=== PATIENT | female | born 1970 | race Caucasian/White ===

== ENCOUNTER 2021-10-20 16:32 | Inpatient (IN) | payer OTHER ==
[~2021-10-20] VITALS: Ht 165.1 cm; Wt 54.1 kg
[2021-10-20] MEDS ORDERED: IV NORMAL SALINE 1000ML BAG 1,000 ML IV ONE (17:30)
[2021-10-20] MEDS ORDERED: ONDANSETRON PF 4 MG/2 ML VIAL. IVP ONE (17:30)
[2021-10-20 17:44] LABS: BARBITURATES NEG (NEG); BENZODIAZEPINES POS (NEG); CANNABINOIDS NEG (NEG); COCAINE NEG (NEG); METHADONE NEG (NEG); OPIATES POS (NEG); PHENCYCLIDINE NEG (NEG)
[2021-10-20] MEDS ORDERED: HYDROmorphone 2 MG/ML INJ. IVP ONE (17:45)
[2021-10-20 17:50] LABS: AMPHETAMINE/METHAMPHETAMINE NEG (NEG)
[2021-10-20 17:53] LABS: BACTERIA,URINE 0 /HPF (0-FEW); RBC,URINE 0 /HPF (0-2); WBC,URINE 0 /HPF (0-4)
[2021-10-20 20:04] LABS: ALBUMIN 3.8 g/dL (3.4-5.0); ALBUMIN/GLOBULIN RATIO 1.6 (1.0-1.7); CALCIUM 8.9 mg/dL (8.5-10.1); CREATININE 0.6 mg/dL (0.6-1.0); GFR 106.3; TOTAL BILIRUBIN 0.2 mg/dL (0.2-1.0); TOTAL PROTEIN 6.2 g/dL (6.4-8.2)
[2021-10-20 20:11] LABS: POTASSIUM 2.4 mmol/L (3.5-5.1)
[2021-10-20] MEDS ORDERED: POTASSIUM BICARB 20 MEQ EFFERVESCENT TABLET. PO ONE (20:30)
--- NOTE | 2021-10-20 20:34 | PHYS DOC ---
Past Medical History Additional Past Medical Histor: EPI, pancreatitis, hernia Past Surgical History: Cholecystectomy, Hysterectomy Smoking Status: Former Smoker Alcohol Use: None General Adult EDM: Chief Complaint: FATIGUE HPI: HPI: Patient is a 50 year old female with a history of gastroparesis, pancreatitis, abdominal surgeries, malnutrition, presenting to the ED today with multiple complaints. Patient states she has had chronic nausea, vomiting and abdominal pain for years. She states she is supposed to have PICC line placed tomorrow by Dr. Gar to start TPN to help improve her nutrition so she can get surgery to fix her colon. She states her colon is "does not work". She states she has continued to have abdominal pain, she states the general surgeon requested her to come to the ED to be evaluated if her pain is not controlled at home. Patient is also complaining of nausea and vomiting. Denies any fever. Denies any hematemesis, denies any diarrhea. Review of Systems: Review of Systems: Constitutional: Denies fever or chills. [] Eyes: Denies change in visual acuity. [] HENT: Denies nasal congestion or sore throat. [] Respiratory: Denies cough or shortness of breath. [] Cardiovascular: Denies chest pain or edema. [] GI: Reports abdominal pain with nausea and vomiting, denies bloody stools or diarrhea. [] : Denies dysuria. [] Musculoskeletal: Denies back pain or joint pain. [] Integument: Denies rash. [] Neurologic: Denies headache, focal weakness or sensory changes. [] Psychiatric: Denies depression or anxiety. [] Heart Score: C/O Chest Pain: N/A Risk Factors: Risk Factors: DM, Current or recent (<one month) smoker, HTN, HLP, family history of CAD, obesity. Risk Scores: Score 0 - 3: 2.5% MACE over next 6 weeks - Discharge Home Score 4 - 6: 20.3% MACE over next 6 weeks - Admit for Clinical Observation Score 7 - 10: 72.7% MACE over next 6 weeks - Early Invasive Strategies Current Medications: Current Medications Medications (Trade) Dose Ordered Sig/Rogerio Start Time Stop Time Status Last Admin Dose Admin Hydromorphone HCl (Dilaudid) 1 mg 1X ONCE 10/20/21 17:45 10/20/21 17:46 DC 10/20/21 19:16 1 MG Ondansetron HCl (Zofran) 4 mg 1X ONCE 10/20/21 17:30 10/20/21 17:40 DC 10/20/21 19:16 4 MG Potassium Bicarbonate (Potassium Effervescent Tablet) 40 meq 1X ONCE 10/20/21 20:30 10/20/21 20:31 Sodium Chloride 1,000 ml @ 1,000 mls/hr 1X ONCE 10/20/21 17:30 10/20/21 18:29 DC 10/20/21 19:27 1,000 MLS/HR Allergies: Allergies: Allergies Coded Allergies Type Severity Reaction Last Updated Verified NSAIDS (Non-Steroidal Anti-Inflamma Allergy Intermediate 10/20/21 Yes lorazepam Allergy Intermediate 10/20/21 Yes metoclopramide Allergy Intermediate 10/20/21 Yes vancomycin Allergy Intermediate 10/20/21 Yes Physical Exam: PE: Constitutional: Emaciated thin appearing patient, no acute distress, non-toxic appearance. [] HENT: Normocephalic, atraumatic, bilateral external ears normal, oropharynx moist, no oral exudates, nose normal. [] Eyes: PERRLA, EOMI, conjunctiva normal, no discharge. [] Neck: Normal range of motion, no tenderness, supple, no stridor. [] Cardiovascular:Heart rate regular rhythm, no murmur [] Lungs & Thorax: Bilateral breath sounds clear to auscultation [] Abdomen: Bowel sounds normal, soft, diffuse tenderness throughout the abdomen, no masses, no pulsatile masses. [] Skin: Warm, dry, no erythema, no rash. [] Back: No tenderness, no CVA tenderness. [] Extremities: No tenderness, no cyanosis, no clubbing, ROM intact, no edema. [] Neurologic: Alert and oriented X 3, normal motor function, normal sensory function, no focal deficits noted. [] Psychologic: Affect normal, judgement normal, mood normal. [] Current Patient Data: Labs: Laboratory Tests Test 10/20/21 17:10 10/20/21 19:35 Urine Color (Auto) Colorless Urine Turbidity Clear Urine pH (Auto) 5.0 (<5.0-8.0) Urine Specific [place] 1.005 (1.000-1.030) Urine Protein (Auto) Negative mg/dL (Negative) Urine Glucose (Auto)(UA) Negative mg/dL (Negative) Urine Ketones (Auto) Negative mg/dL (Negative) Urine Blood (Auto) Negative (Negative) Urine Nitrite Negative (Negative) Urine Bilirubin (Auto) Negative (Negative) Urine Urobilinogen (Auto) Normal mg/dL (Normal) Urine Leukocyte Esterase (Auto) Negative (Negative) Urine RBC 0 /HPF (0-2) Urine WBC 0 /HPF (0-4) Urine Squamous Epithelial Cells Few /LPF Urine Bacteria 0 /HPF (0-FEW) Urine Opiates Screen Pos (NEG) Urine Methadone Screen Neg (NEG) Urine Barbiturates Neg (NEG) Urine Phencyclidine Screen Neg (NEG) Urine Amphetamine/Methamphetamine Neg (NEG) Urine Benzodiazepines Screen Pos (NEG) Urine Cocaine Screen Neg (NEG) Urine Cannabinoids Screen Neg (NEG) Urine Ethyl Alcohol Neg (NEG) Sodium Level 141 mmol/L (136-145) Potassium Level 2.4 mmol/L (3.5-5.1) *L Chloride Level 99 mmol/L (98-107) Carbon Dioxide Level 38 mmol/L (21-32) H Anion Gap 4 (6-14) L Blood Urea Nitrogen 8 mg/dL (7-20) Creatinine 0.6 mg/dL (0.6-1.0) Estimated GFR (Cockcroft-Gault) 106.3 BUN/Creatinine Ratio 13 (6-20) Glucose Level 65 mg/dL (70-99) L Calcium Level 8.9 mg/dL (8.5-10.1) Total Bilirubin 0.2 mg/dL (0.2-1.0) Aspartate Amino Transferase (AST) 77 U/L (15-37) H Alanine Aminotransferase (ALT) 81 U/L (14-59) H Alkaline Phosphatase 107 U/L (46-116) Total Protein 6.2 g/dL (6.4-8.2) L Albumin 3.8 g/dL (3.4-5.0) Albumin/Globulin Ratio 1.6 (1.0-1.7) Lipase 50 U/L (73-393) L Ethyl Alcohol Level < 10 mg/dL (0-10) Laboratory Tests 10/20/21 19:35 Vital Signs: Vital Signs Date Time Temp Pulse Resp B/P (MAP) Pulse Ox O2 Delivery O2 Flow Rate FiO2 3/29/22 19:16 16 100 Room Air 10/20/21 18:29 70 101/57 (72) 10/20/21 16:55 98.7 98.7 EKG: EKG: [] Radiology/Procedures: Radiology/Procedures: [] Course & Med Decision Making: Course & Med Decision Making Pertinent Labs and Imaging studies reviewed. (See chart for details) This a 50-year-old female patient presenting to the ED today complaining of chronic generalized abdominal pain with nausea and vomiting that got worse today. Patient states she supposed to have a PICC line placed tomorrow to start TPN feedings Vitals on arrival to the ED temperature 98.7, heart rate 82, respiration 16 on room air, blood pressure 92/57, O2 sats 99% CBC still pending, CMP with potassium of 2.4, patient was given oral potassium and IV potassium was ordered. Spoke with Dr. Gar who will follow up with patient Spoke with Dr. Figueroa who accepted patient for admission Dragon Disclaimer: Travis Disclaimer: This electronic medical record was generated, in whole or in part, using a voice recognition dictation system. Departure Departure Impression: Primary Impression: Hypokalemia Additional Impressions: Nausea and vomiting Qualified Codes: R11.2 - Nausea with vomiting, unspecified Generalized weakness Malnourished Qualified Codes: E46 - Unspecified protein-calorie malnutrition Disposition: ADMITTED INPATIENT Condition: STABLE Referrals: CHRISTIAN HOOD DO (PCP) ACE LORENZANA APRN Oct 20, 2021 20:34
[2021-10-20] MEDS ORDERED: ONDANSETRON PF 4 MG/2 ML VIAL. IVP PRN (21:15)
[2021-10-20] MEDS: HYDROmorphone 2 MG/ML INJ. IVP PRN (21:30)
[2021-10-20 21:36] LABS: BASO # 0.1 x10^3/uL (0.0-0.2); BASO % 1 % (0-3); EOS # 0.4 x10^3/uL (0.0-0.7); EOS % 8 % (0-3); LYMPH # 2.3 x10^3/uL (1.0-4.8); LYMPH % 48 % (24-48); MEAN CORPUSCULAR HEMOGLOBIN 31 pg (25-35); MEAN CORPUSCULAR HGB CONC 34 g/dL (31-37); MEAN CORPUSCULAR VOLUME 90 fL (79-100); MONO # 0.3 x10^3/uL (0.0-1.1); MONO % 6 % (0-9); NEUT # 1.8 x10^3/uL (1.8-7.7); NEUT % 37 % (31-73); PLATELET COUNT 228 x10^3/uL (140-400); RED BLOOD COUNT 3.91 x10^6/uL (3.50-5.40); WHITE BLOOD COUNT 4.9 x10^3/uL (4.0-11.0)
[2021-10-20] MEDS ORDERED: BISACODYL 10 MG SUPP.RECT. PR PRN (22:45)
[2021-10-20] MEDS ORDERED: ACETAMINOPHEN 325 MG TABLET. PO PRN (22:45)
[2021-10-20] MEDS ORDERED: ZOLPIDEM 5 MG TABLET. PO PRN (22:45)
[2021-10-20 23:35] VITALS: BP 90/52
[2021-10-21] MEDS: HYDROmorphone 2 MG/ML INJ. IVP PRN ×3 (00:41→20:12)
[2021-10-21 02:16] VITALS: BP 72/42
[2021-10-21 05:18] LABS: CALCIUM 8.8 mg/dL (8.5-10.1); CREATININE 0.6 mg/dL (0.6-1.0); GFR 106.3
[2021-10-21] MEDS: HEPARIN for SUB-Q USE 5,000 UNIT/ML VIAL. SQ SCH ×3 (06:00→20:34)
[2021-10-21 07:00] VITALS: BP 73/50
[2021-10-21 10:33] LABS: MAGNESIUM 1.9 mg/dL (1.8-2.4); PHOSPHORUS 4.2 mg/dL (2.6-4.7)
[2021-10-21 11:02] VITALS: BP 84/47
--- NOTE | 2021-10-21 11:20 | PDOC2 ---
CONSULT Date of Consult Date of Consult DATE: 10/21/21 TIME: 11:15 Reason for Consult Reason for Consult: malnutrition Referring Physician Referring Physician: Dr. 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 Pt with c/o abd pain, prompting admission. Past Medical History GI: Constipation, Other (gastroparesis) Hepatobiliary: Other (pancreatitis) Past Surgical History Past Surgical History: Cholecystectomy, Other (hiatal hernia repair) Family History Family History: No Significant Social History Quit Current Problem List Problem List Problems Medical Problems: (1) Generalized weakness Status: Acute (2) Hypokalemia Status: Acute (3) Malnourished Status: Acute (4) Nausea and vomiting Status: Acute Current Medications Current Medications Current Medications Ondansetron HCl (Zofran) 4 mg 1X ONCE IVP Last administered on 10/20/21at 19:16; Start 10/20/21 at 17:30; Stop 10/20/21 at 17:40; Status DC Sodium Chloride 1,000 ml @ 1,000 mls/hr 1X ONCE IV Last administered on 10/20/21at 19:27; Start 10/20/21 at 17:30; Stop 10/20/21 at 18:29; Status DC Hydromorphone HCl (Dilaudid) 1 mg 1X ONCE IVP Last administered on 10/20/21at 19:16; Start 10/20/21 at 17:45; Stop 10/20/21 at 17:46; Status DC Potassium Bicarbonate (Potassium Effervescent Tablet) 40 meq 1X ONCE PO Last administered on 10/20/21at 20:30; Start 10/20/21 at 20:30; Stop 10/20/21 at 20:31; Status DC Ondansetron HCl (Zofran) 4 mg PRN Q8HRS PRN IVP NAUSEA/VOMITING 1ST CHOICE; Start 10/20/21 at 21:15; Stop 10/20/21 at 22:42; Status DC Potassium Chloride/Sodium Chloride 1,000 ml @ 75 mls/hr [id number] IV Last administered on 10/20/21at 21:55; Start 10/20/21 at 21:30; Stop 10/21/21 at 10:49 ; Status DC Hydromorphone HCl (Dilaudid) 1 mg PRN Q3HRS PRN IVP SEVERE PAIN 7-10 Last administered on 10/21/21at 05:56; Start 10/20/21 at 21:15 Ondansetron HCl (Zofran) 4 mg PRN Q6HRS PRN IVP NAUSEA/VOMITING 1ST CHOICE; Start 10/20/21 at 22:45 Zolpidem Tartrate (Ambien) 5 mg PRN QHS PRN PO INSOMNIA, MAY REPEAT IN 1HR; Start 10/20/21 at 22:45 Acetaminophen (Tylenol) 650 mg PRN Q6HRS PRN PO Headaches, Temp > 101.5F; Start 10/20/21 at 22:45 Bisacodyl (Dulcolax Supp) 10 mg PRN DAILY PRN [place] CONSTIPATION; Start 10/20/21 at 22:45 Heparin Sodium (Porcine) (Heparin Sodium) 5,000 unit Q8HRS SQ ; Start 10/21/21 at 06:00 Allergies Allergies: Coded Allergies: NSAIDS (Non-Steroidal Anti-Inflamma (Verified Allergy, Intermediate, 10/20/21) lorazepam (Verified Allergy, Intermediate, 10/20/21) metoclopramide (Verified Allergy, Intermediate, 10/20/21) vancomycin (Verified Allergy, Intermediate, 10/20/21) ROS General: YES: Fatigue Gastrointestinal: Yes Nausea, Yes Vomiting, Yes Abdominal Pain Physical Exam General: Alert, Oriented X3, Cooperative, mild distress HEENT: Atraumatic Abdomen: Soft, Other (distended, mild diffuse TTP) Extremities: No clubbing, No cyanosis Skin: No rashes, No breakdown Neuro: Normal speech, Sensation intact Psych/Mental Status: Mental status NL, Mood NL Vitals VITALS Vital Signs Date Time Temp Pulse Resp B/P (MAP) Pulse Ox O2 Delivery O2 Flow Rate FiO2 10/21/21 11:02 97.8 47 16 84/47 (59) 98 Room Air 97.8 Labs Labs Laboratory Tests Test 10/20/21 17:10 10/20/21 19:35 10/20/21 21:00 10/21/21 03:55 Urine Color (Auto) Colorless Urine Turbidity Clear Urine pH (Auto) 5.0 (<5.0-8.0) Urine Specific [place] 1.005 (1.000-1.030) Urine Protein (Auto) Negative mg/dL (Negative) Urine Glucose (Auto)(UA) Negative mg/dL (Negative) Urine Ketones (Auto) Negative mg/dL (Negative) Urine Blood (Auto) Negative (Negative) Urine Nitrite Negative (Negative) Urine Bilirubin (Auto) Negative (Negative) Urine Urobilinogen (Auto) Normal mg/dL (Normal) Urine Leukocyte Esterase (Auto) Negative (Negative) Urine RBC 0 /HPF (0-2) Urine WBC 0 /HPF (0-4) Urine Squamous Epithelial Cells Few /LPF Urine Bacteria 0 /HPF (0-FEW) Urine Opiates Screen Pos (NEG) Urine Methadone Screen Neg (NEG) Urine Barbiturates Neg (NEG) Urine Phencyclidine Screen Neg (NEG) Urine Amphetamine/Methamphetamine Neg (NEG) Urine Benzodiazepines Screen Pos (NEG) Urine Cocaine Screen Neg (NEG) Urine Cannabinoids Screen Neg (NEG) Urine Ethyl Alcohol Neg (NEG) Sodium Level 141 mmol/L (136-145) 141 mmol/L (136-145) Potassium Level 2.4 mmol/L (3.5-5.1) 3.0 mmol/L (3.5-5.1) Chloride Level 99 mmol/L (98-107) 103 mmol/L (98-107) Carbon Dioxide Level 38 mmol/L (21-32) 36 mmol/L (21-32) Anion Gap 4 (6-14) 2 (6-14) Blood Urea Nitrogen 8 mg/dL (7-20) 7 mg/dL (7-20) Creatinine 0.6 mg/dL (0.6-1.0) 0.6 mg/dL (0.6-1.0) Estimated GFR (Cockcroft-Gault) 106.3 106.3 BUN/Creatinine Ratio 13 (6-20) Glucose Level 65 mg/dL (70-99) 71 mg/dL (70-99) Calcium Level 8.9 mg/dL (8.5-10.1) 8.8 mg/dL (8.5-10.1) Total Bilirubin 0.2 mg/dL (0.2-1.0) Aspartate Amino Transf (AST/SGOT) 77 U/L (15-37) Alanine Aminotransferase (ALT/SGPT) 81 U/L (14-59) Alkaline Phosphatase 107 U/L (46-116) Total Protein 6.2 g/dL (6.4-8.2) Albumin 3.8 g/dL (3.4-5.0) Albumin/Globulin Ratio 1.6 (1.0-1.7) Lipase 50 U/L (73-393) Ethyl Alcohol Level < 10 mg/dL (0-10) White Blood Count 4.9 x10^3/uL (4.0-11.0) Red Blood Count 3.91 x10^6/uL (3.50-5.40) Hemoglobin 12.0 g/dL (12.0-15.5) Hematocrit 35.0 % (36.0-47.0) Mean Corpuscular Volume 90 fL (79-100) Mean Corpuscular Hemoglobin 31 pg (25-35) Mean Corpuscular Hemoglobin Concent 34 g/dL (31-37) Red Cell Distribution Width 13.0 % (11.5-14.5) Platelet Count 228 x10^3/uL (140-400) Neutrophils (%) (Auto) 37 % (31-73) Lymphocytes (%) (Auto) 48 % (24-48) Monocytes (%) (Auto) 6 % (0-9) Eosinophils (%) (Auto) 8 % (0-3) Basophils (%) (Auto) 1 % (0-3) Neutrophils # (Auto) 1.8 x10^3/uL (1.8-7.7) Lymphocytes # (Auto) 2.3 x10^3/uL (1.0-4.8) Monocytes # (Auto) 0.3 x10^3/uL (0.0-1.1) Eosinophils # (Auto) 0.4 x10^3/uL (0.0-0.7) Basophils # (Auto) 0.1 x10^3/uL (0.0-0.2) Phosphorus Level 4.2 mg/dL (2.6-4.7) Magnesium Level 1.9 mg/dL (1.8-2.4) Laboratory Tests Test 10/20/21 17:10 10/20/21 19:35 10/20/21 21:00 10/21/21 03:55 Urine Color (Auto) Colorless Urine Turbidity Clear Urine pH (Auto) 5.0 (<5.0-8.0) Urine Specific [place] 1.005 (1.000-1.030) Urine Protein (Auto) Negative mg/dL (Negative) Urine Glucose (Auto)(UA) Negative mg/dL (Negative) Urine Ketones (Auto) Negative mg/dL (Negative) Urine Blood (Auto) Negative (Negative) Urine Nitrite Negative (Negative) Urine Bilirubin (Auto) Negative (Negative) Urine Urobilinogen (Auto) Normal mg/dL (Normal) Urine Leukocyte Esterase (Auto) Negative (Negative) Urine RBC 0 /HPF (0-2) Urine WBC 0 /HPF (0-4) Urine Squamous Epithelial Cells Few /LPF Urine Bacteria 0 /HPF (0-FEW) Urine Opiates Screen Pos (NEG) Urine Methadone Screen Neg (NEG) Urine Barbiturates Neg (NEG) Urine Phencyclidine Screen Neg (NEG) Urine Amphetamine/Methamphetamine Neg (NEG) Urine Benzodiazepines Screen Pos (NEG) Urine Cocaine Screen Neg (NEG) Urine Cannabinoids Screen Neg (NEG) Urine Ethyl Alcohol Neg (NEG) Sodium Level 141 mmol/L (136-145) 141 mmol/L (136-145) Potassium Level 2.4 mmol/L (3.5-5.1) 3.0 mmol/L (3.5-5.1) Chloride Level 99 mmol/L (98-107) 103 mmol/L (98-107) Carbon Dioxide Level 38 mmol/L (21-32) 36 mmol/L (21-32) Anion Gap 4 (6-14) 2 (6-14) Blood Urea Nitrogen 8 mg/dL (7-20) 7 mg/dL (7-20) Creatinine 0.6 mg/dL (0.6-1.0) 0.6 mg/dL (0.6-1.0) Estimated GFR (Cockcroft-Gault) 106.3 106.3 BUN/Creatinine Ratio 13 (6-20) Glucose Level 65 mg/dL (70-99) 71 mg/dL (70-99) Calcium Level 8.9 mg/dL (8.5-10.1) 8.8 mg/dL (8.5-10.1) Total Bilirubin 0.2 mg/dL (0.2-1.0) Aspartate Amino Transf (AST/SGOT) 77 U/L (15-37) Alanine Aminotransferase (ALT/SGPT) 81 U/L (14-59) Alkaline Phosphatase 107 U/L (46-116) Total Protein 6.2 g/dL (6.4-8.2) Albumin 3.8 g/dL (3.4-5.0) Albumin/Globulin Ratio 1.6 (1.0-1.7) Lipase 50 U/L (73-393) Ethyl Alcohol Level < 10 mg/dL (0-10) White Blood Count 4.9 x10^3/uL (4.0-11.0) Red Blood Count 3.91 x10^6/uL (3.50-5.40) Hemoglobin 12.0 g/dL (12.0-15.5) Hematocrit 35.0 % (36.0-47.0) Mean Corpuscular Volume 90 fL (79-100) Mean Corpuscular Hemoglobin 31 pg (25-35) Mean Corpuscular Hemoglobin Concent 34 g/dL (31-37) Red Cell Distribution Width 13.0 % (11.5-14.5) Platelet Count 228 x10^3/uL (140-400) Neutrophils (%) (Auto) 37 % (31-73) Lymphocytes (%) (Auto) 48 % (24-48) Monocytes (%) (Auto) 6 % (0-9) Eosinophils (%) (Auto) 8 % (0-3) Basophils (%) (Auto) 1 % (0-3) Neutrophils # (Auto) 1.8 x10^3/uL (1.8-7.7) Lymphocytes # (Auto) 2.3 x10^3/uL (1.0-4.8) Monocytes # (Auto) 0.3 x10^3/uL (0.0-1.1) Eosinophils # (Auto) 0.4 x10^3/uL (0.0-0.7) Basophils # (Auto) 0.1 x10^3/uL (0.0-0.2) Phosphorus Level 4.2 mg/dL (2.6-4.7) Magnesium Level 1.9 mg/dL (1.8-2.4) Assessment/Plan Assessment/Plan gastroparesis, chronic constipation, severe malnutrition agree with PICC and TPN for severe malnutrition. Will ask GI to comment on diffuse bowel dysmotility. Pt may benefit from colectomy/colostomy at some point, but given severe malnutrition, favor addressing this first. Thanks for consult! CHARU MARTINEZ MD Oct 21, 2021 11:20
--- NOTE | 2021-10-21 11:40 | NUR ---
SS following for discharge planning. SS reviewed pt chart and discussed with pt RN. Pt is from home and is currently on room air. GI and Surgery following. PICC ordered. PT/OT ordered. SS was contacted and notified that pt has home TPN approved through [facility], ; fax [phone]. Physician notified. SS will continue to follow for discharge planning.
--- NOTE | 2021-10-21 11:41 | PDOC2 ---
GI CONSULT Date of Service: DATE: 10/21/21 TIME: 11:03 Reason For Consult: gastroparesis, colonic inertia HPI: HPI: 50 y/o female w/ complicated GI history evaluated in ER for abdominal pain, previously evaluated by Dr. Gar w/ plans for TPN. She reports ill x 1.5 years, worse x last few weeks/months. C/o abdominal pain and intermittent distention ("like the movie 'Alien'"), also significant weight loss (>100 pounds). Intermittent nausea, sometimes able to eat but sometimes not. Stools daily w/ meds (below). Records reviewed from [facility] - saw GI (Dr. Rivera) there last week - their recommendation was for extensive outpt care and follow-up at tertiary center (such a [facility] - apparently has been referred to motility clinic), also suggestion for pain management evaluation for weaning/stopping narcotics and consideration for psychiatric evaluation for depression. H/o Jeremaih fundoplication (2016) and revision (2019) w/ severing of vagus nerve and subsequent diagnosis of gastroparesis, then PEG placement complicated by colon perforation for which she underwent partial colectomy w/ pyloroplasty and G tube replacement/J tube placement (since removed). SUHAIL, RF, and CRP negative/normal @ [facility]. CT A/P w/ contrast on 10/14/21 showed large amount of fluid and gas throughout colon - similar to past CT. Gastroparesis diet ineffective, intolerant to Reglan, e-mycin and Botox injections unhelpful. Takes Creon (she reports "pancreas basically ") - outside records mention abnormal fecal fat testing. Chronic constipation on Trulance, Motegrity, Symproic, and Dulcolax - sister at bedside mentions good results from Relistor in past. Chronic opioid use (fentanyl patch, oxycodone) for abdominal and back pain. Has followed w/ Dr. Vogt, Dr. Jurado, and Dr. Owens @ [facility]. Has also seen Dr. Ashton @ for EUS and Dr. Fong @ [facility] [place] - unclear history of "biliary duct or portal vein narrowing" and "cirrhosis." Records al so mention h/o Sheridan's esophagus and colon polyps. From [facility] records, had 8 EGDs and 2 colonoscopies between 2017 and 2020. S/p cholecystectomy. Asks if she should try eating by mouth since intestines are so inflamed. PMH: PMH: see HPI - additional PMH per outside records: anxiety, hypothyroidism, arthritis, pelvic floor dysfunction, pituitary m acroadenoma, vit D deficiency, pernicious anemia, ADHD, uterine cancer, DDD, lichen planus lumbar epidural steroid injections, hysterectomy + chemo/rad, appendectomy, tonsillectomy FH: Family History: Cancer (breast - mother and MGM, prostate - MGF), Other (Balaji-Danlos - sister, PCOS - sister) Social History: Smoke: Quit ROS: GEN: Denies fevers, chills, sweats HEENT: Denies blurred vision, sore throat CV: Denies chest pain RESP: Denies shortness of air, cough GI: Per HPI : Denies hematuria, dysuria ENDO: +weight loss NEURO: Denies confusion, dizziness MSK: back pain, weakness SKIN: Denies jaundice, pruritus Vitals: Vitals: Vital Signs Date Time Temp Pulse Resp B/P (MAP) Pulse Ox O2 Delivery O2 Flow Rate FiO2 10/21/21 07:00 97.6 64 16 73/50 (58) 97 Room Air 97.6 Labs: Labs: Laboratory Tests Test 10/20/21 17:10 10/20/21 19:35 10/20/21 21:00 10/21/21 03:55 Urine Color (Auto) Colorless Urine Turbidity Clear Urine pH (Auto) 5.0 (<5.0-8.0) Urine Specific Langtry 1.005 (1.000-1.030) Urine Protein (Auto) Negative mg/dL (Negative) Urine Glucose (Auto)(UA) Negative mg/dL (Negative) Urine Ketones (Auto) Negative mg/dL (Negative) Urine Blood (Auto) Negative (Negative) Urine Nitrite Negative (Negative) Urine Bilirubin (Auto) Negative (Negative) Urine Urobilinogen (Auto) Normal mg/dL (Normal) Urine Leukocyte Esterase (Auto) Negative (Negative) Urine RBC 0 /HPF (0-2) Urine WBC 0 /HPF (0-4) Urine Squamous Epithelial Cells Few /LPF Urine Bacteria 0 /HPF (0-FEW) Urine Opiates Screen Pos (NEG) Urine Methadone Screen Neg (NEG) Urine Barbiturates Neg (NEG) Urine Phencyclidine Screen Neg (NEG) Urine Amphetamine/Methamphetamine Neg (NEG) Urine Benzodiazepines Screen Pos (NEG) Urine Cocaine Screen Neg (NEG) Urine Cannabinoids Screen Neg (NEG) Urine Ethyl Alcohol Neg (NEG) Sodium Level 141 mmol/L (136-145) 141 mmol/L (136-145) Potassium Level 2.4 mmol/L (3.5-5.1) 3.0 mmol/L (3.5-5.1) Chloride Level 99 mmol/L (98-107) 103 mmol/L (98-107) Carbon Dioxide Level 38 mmol/L (21-32) 36 mmol/L (21-32) Anion Gap 4 (6-14) 2 (6-14) Blood Urea Nitrogen 8 mg/dL (7-20) 7 mg/dL (7-20) Creatinine 0.6 mg/dL (0.6-1.0) 0.6 mg/dL (0.6-1.0) Estimated GFR (Cockcroft-Gault) 106.3 106.3 BUN/Creatinine Ratio 13 (6-20) Glucose Level 65 mg/dL (70-99) 71 mg/dL (70-99) Calcium Level 8.9 mg/dL (8.5-10.1) 8.8 mg/dL (8.5-10.1) Total Bilirubin 0.2 mg/dL (0.2-1.0) Aspartate Amino Transf (AST/SGOT) 77 U/L (15-37) Alanine Aminotransferase (ALT/SGPT) 81 U/L (14-59) Alkaline Phosphatase 107 U/L (46-116) Total Protein 6.2 g/dL (6.4-8.2) Albumin 3.8 g/dL (3.4-5.0) Albumin/Globulin Ratio 1.6 (1.0-1.7) Lipase 50 U/L (73-393) Ethyl Alcohol Level < 10 mg/dL (0-10) White Blood Count 4.9 x10^3/uL (4.0-11.0) Red Blood Count 3.91 x10^6/uL (3.50-5.40) Hemoglobin 12.0 g/dL (12.0-15.5) Hematocrit 35.0 % (36.0-47.0) Mean Corpuscular Volume 90 fL (79-100) Mean Corpuscular Hemoglobin 31 pg (25-35) Mean Corpuscular Hemoglobin Concent 34 g/dL (31-37) Red Cell Distribution Width 13.0 % (11.5-14.5) Platelet Count 228 x10^3/uL (140-400) Neutrophils (%) (Auto) 37 % (31-73) Lymphocytes (%) (Auto) 48 % (24-48) Monocytes (%) (Auto) 6 % (0-9) Eosinophils (%) (Auto) 8 % (0-3) Basophils (%) (Auto) 1 % (0-3) Neutrophils # (Auto) 1.8 x10^3/uL (1.8-7.7) Lymphocytes # (Auto) 2.3 x10^3/uL (1.0-4.8) Monocytes # (Auto) 0.3 x10^3/uL (0.0-1.1) Eosinophils # (Auto) 0.4 x10^3/uL (0.0-0.7) Basophils # (Auto) 0.1 x10^3/uL (0.0-0.2) Phosphorus Level 4.2 mg/dL (2.6-4.7) Magnesium Level 1.9 mg/dL (1.8-2.4) Allergies: Coded Allergies: NSAIDS (Non-Steroidal Anti-Inflamma (Verified Allergy, Intermediate, 10/20/21) lorazepam (Verified Allergy, Intermediate, 10/20/21) metoclopramide (Verified Allergy, Intermediate, 10/20/21) vancomycin (Verified Allergy, Intermediate, 10/20/21) Medications: Current Medications Medications (Trade) Dose Ordered Sig/Rogerio Route PRN Reason Start Time Stop Time Status Last Admin Dose Admin Ondansetron HCl (Zofran) 4 mg 1X ONCE IVP 10/20/21 17:30 10/20/21 17:40 DC 10/20/21 19:16 Sodium Chloride 1,000 ml @ 1,000 mls/hr 1X ONCE IV 10/20/21 17:30 10/20/21 18:29 DC 10/20/21 19:27 Hydromorphone HCl (Dilaudid) 1 mg 1X ONCE IVP 10/20/21 17:45 10/20/21 17:46 DC 10/20/21 19:16 Potassium Bicarbonate (Potassium Effervescent Tablet) 40 meq 1X ONCE PO 10/20/21 20:30 10/20/21 20:31 DC 10/20/21 20:30 Potassium Chloride/Sodium Chloride 1,000 ml @ 75 mls/hr [id number] IV 10/20/21 21:30 10/21/21 10:49 DC 10/20/21 21:55 Hydromorphone HCl (Dilaudid) 1 mg PRN Q3HRS PRN IVP SEVERE PAIN 7-10 10/20/21 21:15 10/21/21 05:56 Imaging: Imaging: - PE: pt seen/examined by Dr. 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 Pt seen this morning w/ Dr. Abdi who suggests Relistor for constipation and checking additional labs to r/o connective tissue disorders (lupus, scleroderma) including anti smooth muscle antibody, anti mitochondrial antibody, viral Hepatitis panel, and consideration for fat pad biopsy (r/o amyloid). SUHAIL previously negative @ [facility]. Agree w/ plans for TPN, also okay for PO intake per GI. Recommended MCT oil as outpt. DIANA PETERSON Oct 21, 2021 11:41
[2021-10-21] MEDS ORDERED: BISACODYL 5 MG TABLET.DR. PO PRN (12:00)
[2021-10-21] MEDS ORDERED: METHYLNALTREXONE 12 MG/0.6 ML VIAL. SQ ONE (12:00)
--- NOTE | 2021-10-21 12:25 | PDOC1 ---
History and Physical Date of Admission Date of Admission DATE: 10/21/21 TIME: 12:19 Identification/Chief Complaint Chief Complaint Abdominal pain Source Source: Patient History of Present Illness History of Present Illness Ms Lofton is a 50 yo female with PMHx anxiety, hypothyroidism, arthritis, pelvic floor dysfunction, pituitary macroadenoma, vit D deficiency, pernicious anemia, ADHD, uterine cancer, DDD, lichen planus, and severe GERD s/p fallon fundoplication in 2016 and revision in 2019 with apparent complications of vagal nerve damage and has now had gastroparesis chronic constipation severe malnutrition secondary to this and she notes she was admitted to [facility] in 2020 for sepsis and bowel perforation time surgery and GJ tube placement which failed and has since been removed and she is coming to the ED at [facility] due to worsening of her abdominal pain admitted for pain control. She notes pain is always at least 5 out of 10 despite her home pain medication regimen and notes that her pain has been attended 10 for the past 2 days. She does note that she wears a fentanyl patch 25 mcg and has not changed it for 5 days. She has been treated outpatient for chronic pancreatic insufficiency Hypothyroidism vitamin D deficiency vitamin B12 deficiency and chronic pain Checked outpatient prescriptions for fentanyl patch 25 mcg oxycodone 5 mg 3 times daily, alprazolam 1 mg 3 times daily filled at [facility] [address], [place] Had been seen and evaluated by Dr. Gar w/ plans for TPN and possible interval colectomy Per d/w surgery and GI she had a CT abdomen/pelvis on 10/14/21 showed large amount of fluid and gas throughout colon. This was unchanged from prior She notes she also takes Trulance, Motegrity, Symproic, and Dulcolax PO. Her sister notes a recent EUS at [facility] where they do not believe biopsies were performed and patient was told at some point she has cirrhosis [facility] hospitalization. Labs with WBC 4.9, Hb 12, platelets 228, NA 141, K2.4, BUN 8, CR 0.6, glucose 65, calcium 8.9, phosphorus 4.2, magnesium 1.9, bilirubin 0.2, AST 77, ALT 81, alkaline phosphatase 107, albumin 3.8, lipase 50, UDS consistent with home prescription for opioids and benzodiazepines, urine ethanol level 0. Given IV hydromorphone and admitted for further care Past Medical History Past Medical History anxiety, hypothyroidism, arthritis, pelvic floor dysfunction, pituitary macroadenoma, vit D deficiency, pernicious anemia, ADHD, uterine cancer, DDD, lichen planus GI: Constipation, Other (gastroparesis) Hepatobiliary: Other (pancreatitis) Past Surgical History Past Surgical History lumbar epidural steroid injections, hysterectomy + chemo/rad, appendectomy, tonsillectomy Past Surgical History: Cholecystectomy, Other (hiatal hernia repair) Family History Family History Cancer (breast - mother and MGM, prostate - MGF), Other (Balaji-Danlos - sister, PCOS - sister) Family History: Cancer (Breast in mother and maternal grandmother, prostate in maternal grandfather), Other (Balaji-Danlos - sister; PCOS - sister) Social History Smoke: Quit ALCOHOL: none Drugs: None Current Problem List Problem List Problems Medical Problems: (1) Generalized weakness Status: Acute (2) Hypokalemia Status: Acute (3) Malnourished Status: Acute (4) Nausea and vomiting Status: Acute Current Medications Current Medications Current Medications Ondansetron HCl (Zofran) 4 mg 1X ONCE IVP Last administered on 10/20/21at 19:16; Start 10/20/21 at 17:30; Stop 10/20/21 at 17:40; Status DC Sodium Chloride 1,000 ml @ 1,000 mls/hr 1X ONCE IV Last administered on 10/20/21at 19:27; Start 10/20/21 at 17:30; Stop 10/20/21 at 18:29; Status DC Hydromorphone HCl (Dilaudid) 1 mg 1X ONCE IVP Last administered on 10/20/21at 19:16; Start 10/20/21 at 17:45; Stop 10/20/21 at 17:46; Status DC Potassium Bicarbonate (Potassium Effervescent Tablet) 40 meq 1X ONCE PO Last administered on 10/20/21at 20:30; Start 10/20/21 at 20:30; Stop 10/20/21 at 20:31; Status DC Ondansetron HCl (Zofran) 4 mg PRN Q8HRS PRN IVP NAUSEA/VOMITING 1ST CHOICE; Start 10/20/21 at 21:15; Stop 10/20/21 at 22:42; Status DC Potassium Chloride/Sodium Chloride 1,000 ml @ 75 mls/hr [id number] IV Last administered on 10/20/21at 21:55; Start 10/20/21 at 21:30; Stop 10/21/21 at 10:49; Status DC Hydromorphone HCl (Dilaudid) 1 mg PRN Q3HRS PRN IVP SEVERE PAIN 7-10 Last administered on 10/21/21at 05:56; Start 10/20/21 at 21:15 Ondansetron HCl (Zofran) 4 mg PRN Q6HRS PRN IVP NAUSEA/VOMITING 1ST CHOICE; Start 10/20/21 at 22:45 Zolpidem Tartrate (Ambien) 5 mg PRN QHS PRN PO INSOMNIA, MAY REPEAT IN 1HR; Start 10/20/21 at 22:45 Acetaminophen (Tylenol) 650 mg PRN Q6HRS PRN PO Headaches, Temp > 101.5F; Start 10/20/21 at 22:45 Bisacodyl (Dulcolax Supp) 10 mg PRN DAILY PRN WI CONSTIPATION; Start 10/20/21 at 22:45 Heparin Sodium (Porcine) (Heparin Sodium) 5,000 unit Q8HRS SQ ; Start 10/21/21 at 06:00 Potassium Chloride (Klor-Con) 40 meq 1X ONCE PO ; Start 10/21/21 at 11:45; Stop 10/21/21 at 11:46; Status UNV Allergies Allergies: Coded Allergies: NSAIDS (Non-Steroidal Anti-Inflamma (Verified Allergy, Intermediate, 10/20/21) lorazepam (Verified Allergy, Intermediate, 10/20/21) metoclopramide (Verified Allergy, Intermediate, 10/20/21) vancomycin (Verified Allergy, Intermediate, 10/20/21) ROS General: YES: Fatigue, Malaise, Appetite; No: Chills, Night Sweats, Other PSYCHOLOGICAL ROS: YES: Anxiety; No: Behavioral Disorder, Concentration difficultie, Decreased libido, Depression, Disorientation, Hallucinations, Hostility, Irritablity, Memory difficulties, Mood Swings, Obsessive thoughts, Physical abuse, Sexual abuse, Sleep disturbances, Suicidal ideation, Other Eyes: No Blurry vision, No Decreased vision, No Double vision, No Dry eyes, No Excessive tearing, No Eye Pain, No Itchy Eyes, No Loss of vision, No Photophobia, No Scotomata, No Uses contacts, No Uses glasses, No Other HEENT: No: Heacaches, Visual Changes, Hearing change, Nasal congestion, Nasal discharge, Oral lesions, Sinus pain, Sore Throat, Epistaxis, Sneezing, Snoring, Tinnitus, Vertigo, Vocal changes, Other ALLERGY AND IMMUNOLOGY: No: Hives, Insect Bite Sensitivity, Itchy/Watery Eyes, Nasal Congestion, Post Nasal Drip, Seasonal Allergies, Other Hematological and Lymphatic: No: Bleeding Problems, Blood Clots, Blood Transfusions, Brusing, Night Sweats, Pallor, Swollen Lymph Nodes, Other ENDOCRINE: No: Breast Changes, Galactorrhea, Hair Pattern Changes, Hot Flashes, Malaise/lethargy, Mood Swings, Palpitations, Polydipsia/polyuria, Skin Changes, Temperature Intolerance, Unexpected Weight Changes, Other Breast: No New/Changing Breast Lumps, No Nipple changes, No Nipple discharge, No Other Respiratory: No: Cough, Hemoptysis, Orthopnea, Pleuritic Pain, Shortness of breath, SOB with excertion, Sputum Changes, Stridor, Tachypnea, Wheezing, Other Cardiovascular: No Chest Pain, No Palpitations, No Orthopnea, No Paroxysmal Noc. Dyspnea, No Edema, No Lt Headedness, No Other Gastrointestinal: Yes Nausea, Yes Abdominal Pain, Yes Constipation; No Vomiting, No Diarrhea, No Melena, No Hematochezia, No Other Genitourinary: No Dysuria, No Frequency, No Incontinence, No Hematuria, No Retention, No Discharge, No Urgency, No Pain, No Flank Pain, No Other, No , No , No , No , No , No , No Musculoskeletal: No Gait Disturbance, No Joint Pain, No Joint Stiffness, No Joint Swelling, No Muscle Pain, No Muscular Weakness, No Pain In:, No Swelling In:, No Other Neurological: No Behavorial Changes, No Bowel/Bladder ControlChng, No Confusion, No Dizziness, No Gait Disturbance, No Headaches, No Impaired Coord/balance, No Memory Loss, No Numbness/Tingling, No Seizures, No Speech Problems, No Tremors, No Visual Changes, No Weakness, No Other Skin: No Dry Skin, No Eczema, No Hair Changes, No Lumps, No Mole Changes, No Mottling, No Nail Changes, No Pruritus, No Rash, No Skin Lesion Changes, No Other, No Acne Physical Exam General: Alert, Oriented X3, Cooperative, mild distress, Other (Cachectic.Images visible sunken eyes. Pale.) HEENT: Atraumatic, PERRLA, EOMI, Mucous membr. moist/pink Lungs: Clear to auscultation, Normal air movement Heart: S1S2, RRR, no thrills, no rubs, no gallops, no murmurs Abdomen: Normal bowel sounds, Soft, No hepatosplenomegaly, No masses, Other (Diffuse tenderness) Rectal Exam: not examined Extremities: No clubbing, No cyanosis, No edema, Normal pulses, No tenderness/swelling Skin: No rashes, No breakdown, No significant lesion Neuro: Normal gait, Normal speech, Strength at 5/5 X4 ext, Normal tone, Sensation intact, Cranial nerves 3-12 NL, Reflexes 2+ Psych/Mental Status: Mental status NL, Other (Depressed mood, anxious) Vitals Vitals Vital Signs Date Time Temp Pulse Resp B/P (MAP) Pulse Ox O2 Delivery O2 Flow Rate FiO2 10/21/21 11:02 97.8 47 16 84/47 (59) 98 Room Air 97.8 Labs Labs Laboratory Tests Test 10/20/21 17:10 10/20/21 19:35 10/20/21 21:00 10/21/21 03:55 Urine Color (Auto) Colorless Urine Turbidity Clear Urine pH (Auto) 5.0 (<5.0-8.0) Urine Specific [place] 1.005 (1.000-1.030) Urine Protein (Auto) Negative mg/dL (Negative) Urine Glucose (Auto)(UA) Negative mg/dL (Negative) Urine Ketones (Auto) Negative mg/dL (Negative) Urine Blood (Auto) Negative (Negative) Urine Nitrite Negative (Negative) Urine Bilirubin (Auto) Negative (Negative) Urine Urobilinogen (Auto) Normal mg/dL (Normal) Urine Leukocyte Esterase (Auto) Negative (Negative) Urine RBC 0 /HPF (0-2) Urine WBC 0 /HPF (0-4) Urine Squamous Epithelial Cells Few /LPF Urine Bacteria 0 /HPF (0-FEW) Urine Opiates Screen Pos (NEG) Urine Methadone Screen Neg (NEG) Urine Barbiturates Neg (NEG) Urine Phencyclidine Screen Neg (NEG) Urine Amphetamine/Methamphetamine Neg (NEG) Urine Benzodiazepines Screen Pos (NEG) Urine Cocaine Screen Neg (NEG) Urine Cannabinoids Screen Neg (NEG) Urine Ethyl Alcohol Neg (NEG) Sodium Level 141 mmol/L (136-145) 141 mmol/L (136-145) Potassium Level 2.4 mmol/L (3.5-5.1) 3.0 mmol/L (3.5-5.1) Chloride Level 99 mmol/L (98-107) 103 mmol/L (98-107) Carbon Dioxide Level 38 mmol/L (21-32) 36 mmol/L (21-32) Anion Gap 4 (6-14) 2 (6-14) Blood Urea Nitrogen 8 mg/dL (7-20) 7 mg/dL (7-20) Creatinine 0.6 mg/dL (0.6-1.0) 0.6 mg/dL (0.6-1.0) Estimated GFR (Cockcroft-Gault) 106.3 106.3 BUN/Creatinine Ratio 13 (6-20) Glucose Level 65 mg/dL (70-99) 71 mg/dL (70-99) Calcium Level 8.9 mg/dL (8.5-10.1) 8.8 mg/dL (8.5-10.1) Total Bilirubin 0.2 mg/dL (0.2-1.0) Aspartate Amino Transf (AST/SGOT) 77 U/L (15-37) Alanine Aminotransferase (ALT/SGPT) 81 U/L (14-59) Alkaline Phosphatase 107 U/L (46-116) Total Protein 6.2 g/dL (6.4-8.2) Albumin 3.8 g/dL (3.4-5.0) Albumin/Globulin Ratio 1.6 (1.0-1.7) Lipase 50 U/L (73-393) Ethyl Alcohol Level < 10 mg/dL (0-10) White Blood Count 4.9 x10^3/uL (4.0-11.0) Red Blood Count 3.91 x10^6/uL (3.50-5.40) Hemoglobin 12.0 g/dL (12.0-15.5) Hematocrit 35.0 % (36.0-47.0) Mean Corpuscular Volume 90 fL (79-100) Mean Corpuscular Hemoglobin 31 pg (25-35) Mean Corpuscular Hemoglobin Concent 34 g/dL (31-37) Red Cell Distribution Width 13.0 % (11.5-14.5) Platelet Count 228 x10^3/uL (140-400) Neutrophils (%) (Auto) 37 % (31-73) Lymphocytes (%) (Auto) 48 % (24-48) Monocytes (%) (Auto) 6 % (0-9) Eosinophils (%) (Auto) 8 % (0-3) Basophils (%) (Auto) 1 % (0-3) Neutrophils # (Auto) 1.8 x10^3/uL (1.8-7.7) Lymphocytes # (Auto) 2.3 x10^3/uL (1.0-4.8) Monocytes # (Auto) 0.3 x10^3/uL (0.0-1.1) Eosinophils # (Auto) 0.4 x10^3/uL (0.0-0.7) Basophils # (Auto) 0.1 x10^3/uL (0.0-0.2) Phosphorus Level 4.2 mg/dL (2.6-4.7) Magnesium Level 1.9 mg/dL (1.8-2.4) Test 10/21/21 11:29 Glucose (Fingerstick) 59 mg/dL (70-99) Laboratory Tests Test 10/20/21 17:10 10/20/21 19:35 10/20/21 21:00 10/21/21 03:55 Urine Color (Auto) Colorless Urine Turbidity Clear Urine pH (Auto) 5.0 (<5.0-8.0) Urine Specific [place] 1.005 (1.000-1.030) Urine Protein (Auto) Negative mg/dL (Negative) Urine Glucose (Auto)(UA) Negative mg/dL (Negative) Urine Ketones (Auto) Negative mg/dL (Negative) Urine Blood (Auto) Negative (Negative) Urine Nitrite Negative (Negative) Urine Bilirubin (Auto) Negative (Negative) Urine Urobilinogen (Auto) Normal mg/dL (Normal) Urine Leukocyte Esterase (Auto) Negative (Negative) Urine RBC 0 /HPF (0-2) Urine WBC 0 /HPF (0-4) Urine Squamous Epithelial Cells Few /LPF Urine Bacteria 0 /HPF (0-FEW) Urine Opiates Screen Pos (NEG) Urine Methadone Screen Neg (NEG) Urine Barbiturates Neg (NEG) Urine Phencyclidine Screen Neg (NEG) Urine Amphetamine/Methamphetamine Neg (NEG) Urine Benzodiazepines Screen Pos (NEG) Urine Cocaine Screen Neg (NEG) Urine Cannabinoids Screen Neg (NEG) Urine Ethyl Alcohol Neg (NEG) Sodium Level 141 mmol/L (136-145) 141 mmol/L (136-145) Potassium Level 2.4 mmol/L (3.5-5.1) 3.0 mmol/L (3.5-5.1) Chloride Level 99 mmol/L (98-107) 103 mmol/L (98-107) Carbon Dioxide Level 38 mmol/L (21-32) 36 mmol/L (21-32) Anion Gap 4 (6-14) 2 (6-14) Blood Urea Nitrogen 8 mg/dL (7-20) 7 mg/dL (7-20) Creatinine 0.6 mg/dL (0.6-1.0) 0.6 mg/dL (0.6-1.0) Estimated GFR (Cockcroft-Gault) 106.3 106.3 BUN/Creatinine Ratio 13 (6-20) Glucose Level 65 mg/dL (70-99) 71 mg/dL (70-99) Calcium Level 8.9 mg/dL (8.5-10.1) 8.8 mg/dL (8.5-10.1) Total Bilirubin 0.2 mg/dL (0.2-1.0) Aspartate Amino Transf (AST/SGOT) 77 U/L (15-37) Alanine Aminotransferase (ALT/SGPT) 81 U/L (14-59) Alkaline Phosphatase 107 U/L (46-116) Total Protein 6.2 g/dL (6.4-8.2) Albumin 3.8 g/dL (3.4-5.0) Albumin/Globulin Ratio 1.6 (1.0-1.7) Lipase 50 U/L (73-393) Ethyl Alcohol Level < 10 mg/dL (0-10) White Blood Count 4.9 x10^3/uL (4.0-11.0) Red Blood Count 3.91 x10^6/uL (3.50-5.40) Hemoglobin 12.0 g/dL (12.0-15.5) Hematocrit 35.0 % (36.0-47.0) Mean Corpuscular Volume 90 fL (79-100) Mean Corpuscular Hemoglobin 31 pg (25-35) Mean Corpuscular Hemoglobin Concent 34 g/dL (31-37) Red Cell Distribution Width 13.0 % (11.5-14.5) Platelet Count 228 x10^3/uL (140-400) Neutrophils (%) (Auto) 37 % (31-73) Lymphocytes (%) (Auto) 48 % (24-48) Monocytes (%) (Auto) 6 % (0-9) Eosinophils (%) (Auto) 8 % (0-3) Basophils (%) (Auto) 1 % (0-3) Neutrophils # (Auto) 1.8 x10^3/uL (1.8-7.7) Lymphocytes # (Auto) 2.3 x10^3/uL (1.0-4.8) Monocytes # (Auto) 0.3 x10^3/uL (0.0-1.1) Eosinophils # (Auto) 0.4 x10^3/uL (0.0-0.7) Basophils # (Auto) 0.1 x10^3/uL (0.0-0.2) Phosphorus Level 4.2 mg/dL (2.6-4.7) Magnesium Level 1.9 mg/dL (1.8-2.4) Test 10/21/21 11:29 Glucose (Fingerstick) 59 mg/dL (70-99) VTE Prophylaxis Ordered VTE Prophylaxis Devices: No VTE Pharmacological Prophylaxi: No Assessment/Plan Assessment/Plan Acute on Chronic abdominal pain -fentanyl patch renal 48 hours ago this contributes to acute worsening. Replaced back on p.o. Will wean off IV as tolerated. Hypokalemia - replaced GERD - s/p Fallon funcoplication in 2017 with revision w/ vagal nerve injury in 2019 Gastroparesis -multifactorial with historic vagus nerve injury and chronic opioids both contribute. With connective tissue disease disorder in the family further work-up indicated outpatient by GI Transaminitis -likely malnutrition related. Will monitor outpatient. Severe protein calorie malnutrition -plans for outpatient TPN. Will place PICC H/o Sheridan's - likely original indication for Fallon in 2016 Chronic constipation - partially opioid induced and neurologic H/o bowel perforation - complicated partial colon resection, pyloroplasty, GJ tube placement which was subsequently removed. Discussed with patient she does not wish for repeat from time. Advised this may eventually be necessary Pancreatic insufficiency - she tells me she was placed on creon for this Chronic pain/opioid dependence -counseled on alternative medications and refer ral to pain management outpatient. Part of her gastroparesis can be opioid induced as well Abdominal distention -partially due to chronic constipation. Could try Relistor given chronic opioid therapy. Movantik or other oral naltrexone agent may be appropriate Abnormal weight loss - uterine ca in remission. Seems to be malabsorption due to severe protein calorie malnutrition. She has lost 250 pounds over the past 5 years of 100 which she lost intentionally but after 2019 she lost an additional 150 pounds. No history of eating disorders. Anxiety - on xanax outpatient Hypothyroidism - levothyroxine Pelvic floor dysfunction and Lichen planus Vit D deficiency - on weekly [id number] Pernicious anemia - takes weekly B12 shots ADHD H/o uterine cancer FEN - Full liquid diet PPX - SCDs FULL CODE Dispo - inpatient. Pending PEG placement pain control may be able to discharge home safely this evening. Justifications for Admission Other Justification MAXIMILIANO GOLDSMITH MD Oct 21, 2021 12:25
[2021-10-21] MEDS ORDERED: POTASSIUM CHLORIDE 20 MEQ TABLET.ER. PO ONE (12:30)
[2021-10-21] MEDS ORDERED: fentaNYL 25MCG/HR PATCH 1 PATCH PATCH.TD72 TD SCH (12:30)
[2021-10-21] MEDS: oxyCODONE IR 5 MG TABLET PO PRN (13:08)
[2021-10-21] MEDS: LEVOTHYROXINE 88 MCG TABLET PO SCH (13:10)
[2021-10-21] MEDS ORDERED: fentaNYL PF VIAL 100 MCG/2 ML VIAL IVP ONE ×2 (14:00→15:45)
[2021-10-21] MEDS: ONDANSETRON PF 4 MG/2 ML VIAL. IVP PRN (14:05)
[2021-10-21] MEDS ORDERED: fentaNYL PF VIAL 100 MCG/2 ML VIAL IVP PRN (14:45)
[2021-10-21 15:00] VITALS: BP 86/53
--- NOTE | 2021-10-21 15:15 | NUR ---
Allergies and reactions: NSAIDS, Ativan, Reglan, Vancomycin BUN 7 Cr 0.6 Platelets 228 Blood culture done N/A blood culture results Order Verified Y Consent signed Y Previous PICC placement Y (patient states x4) Past Medical/Surgical history and current diagnosis reviewed Y Patient Medical /Surgical History Related to PICC line placement None Special considerations for PICC line placement None PICC placement indication Poor peripheral intravenous access Total Parenteral Nutrition (TPN) Siri EUCEDA Addendum: 10/21/21 at 1836 by NATHAN CANELA RN Amended: Links added.
--- NOTE | 2021-10-21 15:15 | NUR ---
Procedure: Following complete explanation of the PICC procedure including the indications, risks, and potential complications, informed consent was obtained. The possibility for infection was discussed along with signs, symptoms, and prevention. All the questions were answered. Written and verbal patient education was provided. Hand hygiene performed. Standardized central line checklist was utilized. The patient was placed in the supine position, the arm was prepped with chlorhexidine and patient draped with maximum sterile barrier. 2 mL 1% lidocaine was infiltrated into the skin to provide local anesthesia. A thorough assessment of Left upper extremity completed. Using real-time ultrasound guidance and standardized micro puncture set, the basillic vein was punctured and a peel away sheath was placed using the modified Seldinger technique. A tip location device was used to ensure adequate catheter placement. The catheter was secured using a securement device and an antimicrobial patch was applied directly on the insertion site followed by a transparent dressing. All ports withdraw blood and flush without resistance. Patient tolerated the procedure without apparent complication(s). Double Lumen Power PICC placement successful and uncomplicated. Placement verified by EKG tip confirmation system and/or chest x-ray. Tip located in the CAJ Complications: NONE Addendum: 10/21/21 at 1836 by NATHAN CANELA RN Amended: Links added.
[2021-10-21] MEDS ORDERED: FENT1PAT15 TD (15:59)
[2021-10-21] MEDS ORDERED: BISA5TAB4 PO (15:59)
[2021-10-21] MEDS ORDERED: OXYC5TAB4 PO (15:59)
[2021-10-21] MEDS ORDERED: LEVO88TA4 PO (15:59)
--- NOTE | 2021-10-21 16:01 | SNU/HH DC ---
DISCHARGE WITH HOME HEALTH DISCHARGE INFORMATION: Discharge Date: Oct 22, 2021 Final Diagnosis: Problems Medical Problems: (1) Generalized weakness Status: Acute (2) Hypokalemia Status: Acute (3) Malnourished Status: Acute (4) Nausea and vomiting Status: Acute Condition on Discharge: Stable CODE STATUS: Code Status: Full HOME HEALTH: Face to Face: I certify this patient is under my care and that I, or a nurse practitioner or physician's assistant clinical nurse manager working with me, had a face to face encounter that meets the physician face to face encounter requirements with this patient on 10/22/2021. Medical Complications: Other (Gastroparesis, severe protein calorie malnutrition) Residential For: Assess & Educate Safety, IV Infusion Therapy, Medication Management, Pain Management RN For Eval/Treatment: Yes Physical Therapy For: Evalulation/Treatment Occupational Therapy For: Evaluation/Treatment Pt Meets Homebound Status: Extreme weakness w/ amb. POST DISCHARGE ORDERS: Activity Instructions for Disc: Resume previous activity Weight Bearing Status after Di: Full weight bearing DIET AFTER DISCHARGE: Regular (Plus supplemental TPN) Wound/Incision Care: Change dressing CHECKS AFTER DISCHARGE: Checks after discharge: Check blood press - daily, Check your Temp as needed FOLLOW-UP: Additional Instructions: PICC first line supervisor Probiotics TPN FORMULA: TPN TYPE: Central Cyclic AMINO ACIDS: 82 gm DEXTROSE: 205 gm LIPIDS: 50 GM MWF gm SODIUM CHLORIDE: 75 mEq SODIUM ACETATE: mEq SODIUM PHOSPHATE: mmol POTASSIUM CHLORIDE: 50 mEq POTASSIUM ACETATE: mEq POTASSIUM PHOSPHATE: mmol MAGNESIUM: 36 mEq CALCIUM: 5 mEq INSULIN: units MULTIPLE VITAMIN: 10 ml TRACE ELEMENTS: 1 ml(s) TPN PLAN: CONT TPN FORMULA FROM HOME. LIPID MWF. R: Continue TPN TRO 12HRS WITH 1HR UP AND 1HR DOWN. Labs weekly CMP, Mag, Phos, Triglycerides to Dr. Gar [id number] [place], [place] [id number] TREATMENT/EQUIPMENT ORDERS: Infusion Equipment, home use: PICC Line CERTIFICATION STATEMENT: Certification Statement: Certification Statement: Based on the above finding, I certify that this patient is confined to the home and needs intermittent fci care, physical therapy and/or speech therapy, or continues to need occupational therapy.~ This patient is under my care, and I have initiated the establishment of the plan of care.~ This patient will be followed by myself or a community physician who will periodically review the plan of care. Home Meds Active Scripts Levothyroxine Sodium (LEVOTHYROXINE SODIUM) 88 Mcg Tablet, 88 MCG PO DAILY06 for Hypothyroidism for 30 Days, #30 TAB Prov:MAXIMILIANO GOLDSMITH MD 10/21/21 Bisacodyl (BISACODYL) 5 Mg Tablet.dr, 10 MG PO PRN DAILY PRN for CONSTIPATION for 30 Days, #30 TAB.SR Prov:MAXIMILIANO GOLDSMITH MD 10/21/21 Oxycodone Hcl (OXYCODONE HCL IMMED.RELEASE ) 5 Mg Tablet, 5 MG PO PRN Q6HRS PRN for PAIN for 30 Days, #120 TAB Prov:MAXIMILIANO GOLDSMITH MD 10/21/21 Fentanyl (FENTANYL 25mcg/hr) 1 Each Patch.td72, 1 PATCH TD Q3DAYS for Chronic abdominal pain for 30 Days, #10 PATCH Prov:MAXIMILIANO GOLDSMITH MD 10/21/21 MAXIMILIANO GOLDSMITH MD Oct 21, 2021 16:01
[2021-10-21] MEDS ORDERED: POTASSIUM CL 20MEQ D5-0.45NACL 1,000 ML IV ONE (18:30)
[2021-10-21 19:00] VITALS: BP 98/51
[2021-10-21 22:14] VITALS: BP 97/60
[2021-10-22] MEDS: HYDROmorphone 2 MG/ML INJ. IVP PRN ×4 (00:58→11:32)
[2021-10-22 02:37] VITALS: BP 98/51
[2021-10-22] MEDS: oxyCODONE IR 5 MG TABLET PO PRN ×2 (03:01→14:27)
[2021-10-22] MEDS: ONDANSETRON PF 4 MG/2 ML VIAL. IVP PRN (05:03)
[2021-10-22] MEDS: LEVOTHYROXINE 88 MCG TABLET PO SCH (05:08)
[2021-10-22] MEDS: HEPARIN for SUB-Q USE 5,000 UNIT/ML VIAL. SQ SCH (05:10)
[2021-10-22 05:36] LABS: CALCIUM 8.2 mg/dL (8.5-10.1); CREATININE 0.6 mg/dL (0.6-1.0); GFR 106.3; MAGNESIUM 1.7 mg/dL (1.8-2.4)
--- NOTE | 2021-10-22 06:23 | NUR ---
PT MAGNESIUM LEVEL 1.7, DR GOLDSMITH NOTIFIED, RECEIVED ORDERS TO GIVE 2GM MAGNESIUM SULFATE IF CREATININE WNL. PMRN
[2021-10-22] MEDS ORDERED: MAGNESIUM SULFATE 2GM 50 ML IV ONE ×2 (06:30→10:00)
[2021-10-22 07:00] VITALS: BP 91/52
--- NOTE | 2021-10-22 09:39 | PDOC ---
SURGICAL PROGRESS NOTE DATE: 10/22/21 TIME: 09:37 Subjective feels weak bloated, nausea did have a large explosive stool this AM ROS: No Fever, chills No SOA, cough NO CP, palpations Vital Signs Vital Signs Date Time Temp Pulse Resp B/P (MAP) Pulse Ox O2 Delivery O2 Flow Rate FiO2 10/22/21 05:38 Room Air 10/22/21 02:37 98.0 68 18 98/51 (67) 99 98.0 I&O Intake and Output 10/22/21 07:00 Intake Total 1555.99 ml Output Total 950 ml Balance 605.99 ml Intake Oral 920 ml IV Total 635.99 ml Output Urine Total 950 ml General: Alert, Oriented X3, Other (very thin) HEENT: Atraumatic, Mucous membr. moist/pink Lungs: Clear to auscultation, Normal air movement Heart: Regular rate, Normal S1, Normal S2 Abdomen: Other (distended, tender lower abdomen ) Extremities: No clubbing, No cyanosis Labs Laboratory Tests Test 10/20/21 17:10 10/20/21 19:35 10/20/21 21:00 10/21/21 03:55 Urine Color (Auto) Colorless Urine Turbidity Clear Urine pH (Auto) 5.0 (<5.0-8.0) Urine Specific [place] 1.005 (1.000-1.030) Urine Protein (Auto) Negative mg/dL (Negative) Urine Glucose (Auto)(UA) Negative mg/dL (Negative) Urine Ketones (Auto) Negative mg/dL (Negative) Urine Blood (Auto) Negative (Negative) Urine Nitrite Negative (Negative) Urine Bilirubin (Auto) Negative (Negative) Urine Urobilinogen (Auto) Normal mg/dL (Normal) Urine Leukocyte Esterase (Auto) Negative (Negative) Urine RBC 0 /HPF (0-2) Urine WBC 0 /HPF (0-4) Urine Squamous Epithelial Cells Few /LPF Urine Bacteria 0 /HPF (0-FEW) Urine Opiates Screen Pos (NEG) Urine Methadone Screen Neg (NEG) Urine Barbiturates Neg (NEG) Urine Phencyclidine Screen Neg (NEG) Urine Amphetamine/Methamphetamine Neg (NEG) Urine Benzodiazepines Screen Pos (NEG) Urine Cocaine Screen Neg (NEG) Urine Cannabinoids Screen Neg (NEG) Urine Ethyl Alcohol Neg (NEG) Sodium Level 141 mmol/L (136-145) 141 mmol/L (136-145) Potassium Level 2.4 mmol/L (3.5-5.1) 3.0 mmol/L (3.5-5.1) Chloride Level 99 mmol/L (98-107) 103 mmol/L (98-107) Carbon Dioxide Level 38 mmol/L (21-32) 36 mmol/L (21-32) Anion Gap 4 (6-14) 2 (6-14) Blood Urea Nitrogen 8 mg/dL (7-20) 7 mg/dL (7-20) Creatinine 0.6 mg/dL (0.6-1.0) 0.6 mg/dL (0.6-1.0) Estimated GFR (Cockcroft-Gault) 106.3 106.3 BUN/Creatinine Ratio 13 (6-20) Glucose Level 65 mg/dL (70-99) 71 mg/dL (70-99) Calcium Level 8.9 mg/dL (8.5-10.1) 8.8 mg/dL (8.5-10.1) Total Bilirubin 0.2 mg/dL (0.2-1.0) Aspartate Amino Transf (AST/SGOT) 77 U/L (15-37) Alanine Aminotransferase (ALT/SGPT) 81 U/L (14-59) Alkaline Phosphatase 107 U/L (46-116) Total Protein 6.2 g/dL (6.4-8.2) Albumin 3.8 g/dL (3.4-5.0) Albumin/Globulin Ratio 1.6 (1.0-1.7) Lipase 50 U/L (73-393) Ethyl Alcohol Level < 10 mg/dL (0-10) White Blood Count 4.9 x10^3/uL (4.0-11.0) Red Blood Count 3.91 x10^6/uL (3.50-5.40) Hemoglobin 12.0 g/dL (12.0-15.5) Hematocrit 35.0 % (36.0-47.0) Mean Corpuscular Volume 90 fL (79-100) Mean Corpuscular Hemoglobin 31 pg (25-35) Mean Corpuscular Hemoglobin Concent 34 g/dL (31-37) Red Cell Distribution Width 13.0 % (11.5-14.5) Platelet Count 228 x10^3/uL (140-400) Neutrophils (%) (Auto) 37 % (31-73) Lymphocytes (%) (Auto) 48 % (24-48) Monocytes (%) (Auto) 6 % (0-9) Eosinophils (%) (Auto) 8 % (0-3) Basophils (%) (Auto) 1 % (0-3) Neutrophils # (Auto) 1.8 x10^3/uL (1.8-7.7) Lymphocytes # (Auto) 2.3 x10^3/uL (1.0-4.8) Monocytes # (Auto) 0.3 x10^3/uL (0.0-1.1) Eosinophils # (Auto) 0.4 x10^3/uL (0.0-0.7) Basophils # (Auto) 0.1 x10^3/uL (0.0-0.2) Phosphorus Level 4.2 mg/dL (2.6-4.7) Magnesium Level 1.9 mg/dL (1.8-2.4) Test 10/21/21 11:29 10/21/21 13:45 10/21/21 17:21 10/22/21 05:00 Glucose (Fingerstick) 59 mg/dL (70-99) 123 mg/dL (70-99) Vitamin B12 Level 1070 pg/mL (247-911) Hepatitis A IgM Antibody Nonreactive (Nonreactive) Hepatitis B Surface Antigen Nonreactive (Nonreactive) Hepatitis B Core IgM Antibody Nonreactive (Nonreactive) Hepatitis C IgG Antibody Nonreactive (Nonreactive) Sodium Level 137 mmol/L (136-145) Potassium Level 3.0 mmol/L (3.5-5.1) Chloride Level 103 mmol/L (98-107) Carbon Dioxide Level 32 mmol/L (21-32) Anion Gap 2 (6-14) Blood Urea Nitrogen 9 mg/dL (7-20) Creatinine 0.6 mg/dL (0.6-1.0) Estimated GFR (Cockcroft-Gault) 106.3 Glucose Level 102 mg/dL (70-99) Calcium Level 8.2 mg/dL (8.5-10.1) Magnesium Level 1.7 mg/dL (1.8-2.4) Test 10/22/21 07:43 Glucose (Fingerstick) 84 mg/dL (70-99) Laboratory Tests Test 10/21/21 11:29 10/21/21 13:45 10/21/21 17:21 10/22/21 05:00 Glucose (Fingerstick) 59 mg/dL (70-99) 123 mg/dL (70-99) Vitamin B12 Level 1070 pg/mL (247-911) Hepatitis A IgM Antibody Nonreactive (Nonreactive) Hepatitis B Surface Antigen Nonreactive (Nonreactive) Hepatitis B Core IgM Antibody Nonreactive (Nonreactive) Hepatitis C IgG Antibody Nonreactive (Nonreactive) Sodium Level 137 mmol/L (136-145) Potassium Level 3.0 mmol/L (3.5-5.1) Chloride Level 103 mmol/L (98-107) Carbon Dioxide Level 32 mmol/L (21-32) Anion Gap 2 (6-14) Blood Urea Nitrogen 9 mg/dL (7-20) Creatinine 0.6 mg/dL (0.6-1.0) Estimated GFR (Cockcroft-Gault) 106.3 Glucose Level 102 mg/dL (70-99) Calcium Level 8.2 mg/dL (8.5-10.1) Magnesium Level 1.7 mg/dL (1.8-2.4) Test 10/22/21 07:43 Glucose (Fingerstick) 84 mg/dL (70-99) Problem List Problems Medical Problems: (1) Generalized weakness Status: Acute (2) Hypokalemia Status: Acute (3) Malnourished Status: Acute (4) Nausea and vomiting Status: Acute Assessment/Plan TPN arrangements K continues to be low, management per [facility]PC reviewed GI note home with TPN when stable Justicifation of Admission Dx: Justifications for Admission: Justification of Admission Dx: Yes Comments: malnutrition, hypokalemia SWETHA AMBROSE [employer] ADVISOR Oct 22, 2021 09:39
--- NOTE | 2021-10-22 09:41 | PDOC ---
[employer] PROGRESS NOTE Date of Service DOS: DATE: 10/22/21 TIME: 09:40 Chief Complaint Chief Complaint Acute on Chronic abdominal pain -fentanyl patch renal 48 hours ago this contributes to acute worsening. Replaced back on p.o. Will wean off IV as tolerated. Hypokalemia - replaced GERD - s/p Jeremiah funcoplication in 2016 with revision w/ vagal nerve injury in 2019 Gastroparesis -multifactorial with historic vagus nerve injury and chronic opioids both contribute. With connective tissue disease disorder in the family further work-up indicated outpatient by GI Transaminitis -likely malnutrition related. Will monitor outpatient. Severe protein calorie malnutrition -plans for outpatient TPN. Will place PICC H/o Sheridan's - likely original indication for Jeremiah in 2016 Chronic constipation - partially opioid induced and neurologic H/o bowel perforation - complicated partial colon resection, pyloroplasty, GJ tube placement which was subsequently removed. Discussed with patient she does not wish for repeat from time. Advised this may eventually be necessary Pancreatic insufficiency - she tells me she was placed on creon for this Chronic pain/opioid dependence -counseled on alternative medications and referral to pain management outpatient. Part of her gastroparesis can be opioid induced as well Abdominal distention -partially due to chronic constipation. Could try Relistor given chronic opioid therapy. Movantik or other oral naltrexone agent may be appropriate Abnormal weight loss - uterine ca in remission. Seems to be malabsorption due to severe protein calorie malnutrition. She has lost 250 pounds over the past 5 years of 100 which she lost intentionally but after 2019 she lost an additional 150 pounds. No history of eating disorders. Anxiety - on xanax outpatient Hypothyroidism - levothyroxine Pelvic floor dysfunction and Lichen planus Vit D deficiency - on weekly [id number] Pernicious anemia - takes weekly B12 shots ADHD H/o uterine cancer - in remission FEN - Full liquid diet PPX - SCDs FULL CODE Dispo - inpatient. PICC placement pain control may be able to discharge home safely this evening. History of Present Illness History of Present Illness Ms Lofton is a 50 yo female with PMHx anxiety, hypothyroidism, arthritis, pelvic floor dysfunction, pituitary macroadenoma, vit D deficiency, pernicious anemia, ADHD, uterine cancer, DDD, lichen planus, and severe GERD s/p jeremiah fundoplication in 2016 and revision in 2019 with apparent complications of vagal nerve damage and has now had gastroparesis chronic constipation severe malnutrition secondary to this and she notes she was admitted to [facility] in 2020 for sepsis and bowel perforation time surgery and GJ tube placement which failed and has since been removed and she is coming to the ED at [facility] due to worsening of her abdominal pain admitted for pain control. She notes pain is always at least 5 out of 10 despite her home pain medication regimen and notes that her pain has been attended 10 for the past 2 days. She does note that she wears a fentanyl patch 25 mcg and has not changed it for 5 days. She has been treated outpatient for chronic pancreatic insufficiency Hypothyroidism vitamin D deficiency vitamin B12 deficiency and chronic pain Checked outpatient prescriptions for fentanyl patch 25 mcg oxycodone 5 mg 3 times daily, alprazolam 1 mg 3 times daily filled at [facility] [address], [place] Had been seen and evaluated by Dr. Gar w/ plans for TPN and possible interval colectomy Per d/w surgery and GI she had a CT abdomen/pelvis on 10/14/21 showed large amount of fluid and gas throughout colon. This was unchanged from prior She notes she also takes Trulance, Motegrity, Symproic, and Dulcolax PO. Her sister notes a recent EUS at [facility] where they do not believe biopsies were performed and patient was told at some point she has cirrhosis [facility] hospitalization. Labs with WBC 4.9, Hb 12, platelets 228, NA 141, K2.4, BUN 8, CR 0.6, glucose 65, calcium 8.9, phosphorus 4.2, magnesium 1.9, bilirubin 0.2, AST 77, ALT 81, alkaline phosphatase 107, albumin 3.8, lipase 50, UDS consistent with home prescription for opioids and benzodiazepines, urine ethanol level 0. Given IV hydromorphone and admitted for further care 10/22: Left upper extremity PICC placed without event. K3 and mag 1.7 replacing. She has home TPN already set up and will arrange for home health and after electrolyte replacement can discharge home with home health today. She does note on further review that she had 6 watery bowel movements overnight and felt like the more yellowish. We will send stool for enteric bacterial pathogens and C. difficile. This would not hold up discharge with follow-up and call in antibiotics as appropriate. She notes allergy to vancomycin so she would need Dificid if she is C. difficile positive. Vitals/I&O Vitals/I&O: Vital Signs Date Time Temp Pulse Resp B/P (MAP) Pulse Ox O2 Delivery O2 Flow Rate FiO2 10/22/21 07:00 97.5 58 17 91/52 (65) 99 Room Air 97.5 I & O 10/21/21 10/21/21 10/22/21 15:00 23:00 07:00 Intake Total 0 ml 320 ml 1235.99 ml Output Total 150 ml 800 ml Balance 0 ml 170 ml 435.99 ml Physical Exam General: Alert, Oriented X3, Other (very thin) Heart: Regular rate, Normal S1, Normal S2 Abdomen: Other (distended, tender lower abdomen ) Extremities: No clubbing, No cyanosis Skin: No rashes, No breakdown, No significant lesion Labs Labs: Laboratory Tests Test 10/21/21 11:29 10/21/21 13:45 10/21/21 17:21 10/22/21 05:00 Glucose (Fingerstick) 59 mg/dL (70-99) 123 mg/dL (70-99) Vitamin B12 Level 1070 pg/mL (247-911) Hepatitis A IgM Antibody Nonreactive (Nonreactive) Hepatitis B Surface Antigen Nonreactive (Nonreactive) Hepatitis B Core IgM Antibody Nonreactive (Nonreactive) Hepatitis C IgG Antibody Nonreactive (Nonreactive) Sodium Level 137 mmol/L (136-145) Potassium Level 3.0 mmol/L (3.5-5.1) Chloride Level 103 mmol/L (98-107) Carbon Dioxide Level 32 mmol/L (21-32) Anion Gap 2 (6-14) Blood Urea Nitrogen 9 mg/dL (7-20) Creatinine 0.6 mg/dL (0.6-1.0) Estimated GFR (Cockcroft-Gault) 106.3 Glucose Level 102 mg/dL (70-99) Calcium Level 8.2 mg/dL (8.5-10.1) Magnesium Level 1.7 mg/dL (1.8-2.4) Test 10/22/21 07:43 Glucose (Fingerstick) 84 mg/dL (70-99) Assessment and Plan Assessmemt and Plan Problems Medical Problems: (1) Generalized weakness Status: Acute (2) Hypokalemia Status: Acute (3) Malnourished Status: Acute (4) Nausea and vomiting Status: Acute Comment Review of Relevant I have reviewed the following items yasmine (where applicable) has been applied. Medications: Current Medications Medications (Trade) Dose Ordered Sig/Rogerio Route PRN Reason Start Time Stop Time Status Last Admin Dose Admin Potassium Chloride (Klor-Con) 40 meq 1X ONCE PO 10/21/21 12:30 10/21/21 12:31 DC 10/21/21 13:10 Methylnaltrexone [place] (Relistor) 12 mg 1X ONCE SQ 10/21/21 12:00 10/21/21 12:02 DC 10/21/21 13:12 Amylase/Lipase/ Protease (Zenpep 5,000) 2 cap TIDWMEALS PO 10/21/21 12:00 10/22/21 08:00 Levothyroxine Sodium (Synthroid) 88 mcg DAILY06 PO 10/21/21 14:00 10/22/21 05:08 Fentanyl (Duragesic 25mcg/ Hr Patch) 1 patch Q3DAYS TD 10/21/21 12:30 10/21/21 13:08 Oxycodone HCl (Roxicodone) 5 mg PRN Q6HRS PRN PO PAIN 10/21/21 12:30 10/22/21 03:01 Fentanyl Citrate (Fentanyl 2ml Vial) 25 mcg 1X ONCE IVP 10/21/21 14:00 10/21/21 14:01 DC 10/21/21 14:05 Fentanyl Citrate (Fentanyl 2ml Vial) 25 mcg 1X ONCE IVP 10/21/21 15:45 10/21/21 15:46 DC 10/21/21 15:52 Hydromorphone HCl (Dilaudid) 0.5 mg PRN Q3HRS PRN IVP SEVERE PAIN 7-10 10/21/21 18:00 10/22/21 08:31 Potassium Chloride/Dextrose/ Sod Cl 1,000 ml @ 75 mls/hr [id number] ONCE IV 10/21/21 18:30 10/22/21 07:49 DC 10/21/21 20:13 Magnesium Sulfate 50 ml @ 25 mls/hr 1X ONCE IV 10/22/21 06:30 10/22/21 08:29 DC 10/22/21 06:51 Justifications for Admission Other Justification MAXIMILIANO GOLDSMITH MD Oct 22, 2021 09:41
[2021-10-22] MEDS: POTASSIUM CHLORIDE 20MEQ 100 ML IV SCH ×2 (09:55→11:00)
[2021-10-22 11:00] VITALS: BP 101/51
[2021-10-22] MEDS ORDERED: POTASSIUM CHLORIDE 20 MEQ in IV DEXTROSE 5 %-0.45 % NACL 1,000 ML IV ONE (11:00)
[2021-10-22] MEDS ORDERED: SODI20VI2 IV (11:55)
[2021-10-22] MEDS ORDERED: PANTOPRAZOLE 40 MG TABLET.DR. PO SCH (12:00)
--- NOTE | 2021-10-22 12:43 | PDOC ---
Date of Service: DATE: 10/22/21 TIME: 12:38 Subjective: Subjective: Diarrhea after Relistor, concern pancreatic enzymes aren't working. Bad LLQ and RUQ pain - sees bowel moving like Alien. Picking at coffee and donuts, ate soup yesterday. Emotional - tired of being ill, always in pain. Wants 'scopes. Wants to know the plan GI-[facility]. Sister present. Pt has small lumps under her skin all over her body - has been told "like a calcified lipoma." Going to leave a stool sample. Plans for home w/ TPN and therapy. Wants me to know she's not a drug seeker. Asks what would happen if she stopped her motility meds. Objective: Vital Signs: Vital Signs Date Time Temp Pulse Resp B/P (MAP) Pulse Ox O2 Delivery O2 Flow Rate FiO2 10/22/21 11:00 97.8 81 17 101/51 (68) 99 Room Air 97.8 Labs: Laboratory Tests Test 10/21/21 17:21 10/22/21 07:43 Glucose (Fingerstick) 123 mg/dL (70-99) 84 mg/dL (70-99) PE: GEN: NAD, thin LUNGS: CTAB HEART: RRR ABD: quiet, soft, RUQ discomfort, less LLQ discomfort NEURO/PSYCH: A & O 3, tearful at times A/P: Chronic abdominal pain/distention, nausea/early satiety, weight loss H/o Jeremiah funcoplication revision w/ vagal nerve injury, gastroparesis s/p pyloroplasty Chronic constipation, opioid dependence S/p partial colon resection (perf during PEG) ?pancreatic insufficiency -- 30 min spent. Follow-up in clinic for labs results - I'm not sure she needs more scopes but she really wants a colonoscopy and thinks she would tolerate prep. Previous recs for MCT oil, consideration for eval at tertiary center ([facility]). DC per primary. Justicifation of Admission Dx: Justifications for Admission: Justification of Admission Dx: Yes DIANA PETERSON Oct 22, 2021 12:43
--- NOTE | 2021-10-22 13:00 | PDOC3 ---
Discharge Summary Visit Information Date of Admission: Oct 20, 2021 Date of Discharge: Oct 22, 2021 Admitting Diagnosis: Intractable abdominal pain, hypokalemia Final Diagnosis Problems Medical Problems: (1) Generalized weakness Status: Acute (2) Hypokalemia Status: Acute (3) Malnourished Status: Acute (4) Nausea and vomiting Status: Acute Brief Hospital Course Allergies Allergies Coded Allergies Type Severity Reaction Last Updated Verified NSAIDS (Non-Steroidal Anti-Inflamma Allergy Intermediate 10/20/21 Yes lorazepam Allergy Intermediate 10/20/21 Yes metoclopramide Allergy Intermediate 10/20/21 Yes vancomycin Allergy Intermediate 10/20/21 Yes Vital Signs Vital Signs Date Time Temp Pulse Resp B/P (MAP) Pulse Ox O2 Delivery O2 Flow Rate FiO2 10/22/21 11:00 97.8 81 17 101/51 (68) 99 Room Air 97.8 Lab Results Laboratory Tests Test 10/20/21 17:10 10/20/21 19:35 10/20/21 21:00 10/21/21 03:55 Urine Color (Auto) Colorless Urine Turbidity Clear Urine pH (Auto) 5.0 (<5.0-8.0) Urine Specific Hyrum 1.005 (1.000-1.030) Urine Protein (Auto) Negative mg/dL (Negative) Urine Glucose (Auto)(UA) Negative mg/dL (Negative) Urine Ketones (Auto) Negative mg/dL (Negative) Urine Blood (Auto) Negative (Negative) Urine Nitrite Negative (Negative) Urine Bilirubin (Auto) Negative (Negative) Urine Urobilinogen (Auto) Normal mg/dL (Normal) Urine Leukocyte Esterase (Auto) Negative (Negative) Urine RBC 0 /HPF (0-2) Urine WBC 0 /HPF (0-4) Urine Squamous Epithelial Cells Few /LPF Urine Bacteria 0 /HPF (0-FEW) Urine Opiates Screen Pos (NEG) Urine Methadone Screen Neg (NEG) Urine Barbiturates Neg (NEG) Urine Phencyclidine Screen Neg (NEG) Urine Amphetamine/Methamphetamine Neg (NEG) Urine Benzodiazepines Screen Pos (NEG) Urine Cocaine Screen Neg (NEG) Urine Cannabinoids Screen Neg (NEG) Urine Ethyl Alcohol Neg (NEG) Sodium Level 141 mmol/L (136-145) 141 mmol/L (136-145) Potassium Level 2.4 mmol/L (3.5-5.1) 3.0 mmol/L (3.5-5.1) Chloride Level 99 mmol/L (98-107) 103 mmol/L (98-107) Carbon Dioxide Level 38 mmol/L (21-32) 36 mmol/L (21-32) Anion Gap 4 (6-14) 2 (6-14) Blood Urea Nitrogen 8 mg/dL (7-20) 7 mg/dL (7-20) Creatinine 0.6 mg/dL (0.6-1.0) 0.6 mg/dL (0.6-1.0) Estimated GFR (Cockcroft-Gault) 106.3 106.3 BUN/Creatinine Ratio 13 (6-20) Glucose Level 65 mg/dL (70-99) 71 mg/dL (70-99) Calcium Level 8.9 mg/dL (8.5-10.1) 8.8 mg/dL (8.5-10.1) Total Bilirubin 0.2 mg/dL (0.2-1.0) Aspartate Amino Transf (AST/SGOT) 77 U/L (15-37) Alanine Aminotransferase (ALT/SGPT) 81 U/L (14-59) Alkaline Phosphatase 107 U/L (46-116) Total Protein 6.2 g/dL (6.4-8.2) Albumin 3.8 g/dL (3.4-5.0) Albumin/Globulin Ratio 1.6 (1.0-1.7) Lipase 50 U/L (73-393) Ethyl Alcohol Level < 10 mg/dL (0-10) White Blood Count 4.9 x10^3/uL (4.0-11.0) Red Blood Count 3.91 x10^6/uL (3.50-5.40) Hemoglobin 12.0 g/dL (12.0-15.5) Hematocrit 35.0 % (36.0-47.0) Mean Corpuscular Volume 90 fL (79-100) Mean Corpuscular Hemoglobin 31 pg (25-35) Mean Corpuscular Hemoglobin Concent 34 g/dL (31-37) Red Cell Distribution Width 13.0 % (11.5-14.5) Platelet Count 228 x10^3/uL (140-400) Neutrophils (%) (Auto) 37 % (31-73) Lymphocytes (%) (Auto) 48 % (24-48) Monocytes (%) (Auto) 6 % (0-9) Eosinophils (%) (Auto) 8 % (0-3) Basophils (%) (Auto) 1 % (0-3) Neutrophils # (Auto) 1.8 x10^3/uL (1.8-7.7) Lymphocytes # (Auto) 2.3 x10^3/uL (1.0-4.8) Monocytes # (Auto) 0.3 x10^3/uL (0.0-1.1) Eosinophils # (Auto) 0.4 x10^3/uL (0.0-0.7) Basophils # (Auto) 0.1 x10^3/uL (0.0-0.2) Phosphorus Level 4.2 mg/dL (2.6-4.7) Magnesium Level 1.9 mg/dL (1.8-2.4) Test 10/21/21 11:29 10/21/21 13:45 10/21/21 17:21 10/22/21 05:00 Glucose (Fingerstick) 59 mg/dL (70-99) 123 mg/dL (70-99) Vitamin B12 Level 1070 pg/mL (247-911) Hepatitis A IgM Antibody Nonreactive (Nonreactive) Hepatitis B Surface Antigen Nonreactive (Nonreactive) Hepatitis B Core IgM Antibody Nonreactive (Nonreactive) Hepatitis C IgG Antibody Nonreactive (Nonreactive) Sodium Level 137 mmol/L (136-145) Potassium Level 3.0 mmol/L (3.5-5.1) Chloride Level 103 mmol/L (98-107) Carbon Dioxide Level 32 mmol/L (21-32) Anion Gap 2 (6-14) Blood Urea Nitrogen 9 mg/dL (7-20) Creatinine 0.6 mg/dL (0.6-1.0) Estimated GFR (Cockcroft-Gault) 106.3 Glucose Level 102 mg/dL (70-99) Calcium Level 8.2 mg/dL (8.5-10.1) Magnesium Level 1.7 mg/dL (1.8-2.4) Test 10/22/21 07:43 Glucose (Fingerstick) 84 mg/dL (70-99) Laboratory Tests Test 10/21/21 13:45 10/21/21 17:21 10/22/21 05:00 3/31/22 07:43 Vitamin B12 Level 1070 pg/mL (247-911) Hepatitis A IgM Antibody Nonreactive (Nonreactive) Hepatitis B Surface Antigen Nonreactive (Nonreactive) Hepatitis B Core IgM Antibody Nonreactive (Nonreactive) Hepatitis C IgG Antibody Nonreactive (Nonreactive) Glucose (Fingerstick) 123 mg/dL (70-99) 84 mg/dL (70-99) Sodium Level 137 mmol/L (136-145) Potassium Level 3.0 mmol/L (3.5-5.1) Chloride Level 103 mmol/L (98-107) Carbon Dioxide Level 32 mmol/L (21-32) Anion Gap 2 (6-14) Blood Urea Nitrogen 9 mg/dL (7-20) Creatinine 0.6 mg/dL (0.6-1.0) Estimated GFR (Cockcroft-Gault) 106.3 Glucose Level 102 mg/dL (70-99) Calcium Level 8.2 mg/dL (8.5-10.1) Magnesium Level 1.7 mg/dL (1.8-2.4) Brief Hospital Course Ms Lofton is a 50 yo female with PMHx anxiety, hypothyroidism, arthritis, pelvic floor dysfunction, pituitary macroadenoma, vit D deficiency, pernicious anemia, ADHD, uterine cancer, DDD, lichen planus, and severe GERD s/p fallon fundoplication in 2016 and revision in 2019 with apparent complications of vagal nerve damage and has now had gastroparesis chronic constipation severe maln utrition secondary to this and she notes she was admitted to [facility] in 2020 for sepsis and bowel perforation time surgery and GJ tube placement which failed and has since been removed and she is coming to the ED at [facility] due to worsening of her abdominal pain admitted for pain control. She notes pain is always at least 5 out of 10 despite her home pain medication regimen and notes that her pain has been attended 10 for the past 2 days. She does note that she wears a fentanyl patch 25 mcg and has not changed it for 5 days. She has been treated outpatient for chronic pancreatic insufficiency Hypothyroidism vitamin D deficiency vitamin B12 deficiency and chronic pain Checked outpatient prescriptions for fentanyl patch 25 mcg oxycodone 5 mg 3 times daily, alprazolam 1 mg 3 times daily filled at [facility] [address] [place], [place] Had been seen and evaluated by Dr. [place] w/ plans for TPN and possible interval colectomy Per d/w surgery and GI she had a CT abdomen/pelvis on 10/14/21 showed large amount of fluid and gas throughout colon. This was unchanged from prior She notes she also takes Trulance, Motegrity, Symproic, and Dulcolax PO. Her sister notes a recent EUS at [facility] where they do not believe biopsies were performed and patient was told at some point she has cirrhosis [facility]. Labs with WBC 4.9, Hb 12, platelets 228, NA 141, K2.4, BUN 8, CR 0.6, glucose 65, calcium 8.9, phosphorus 4.2, magnesium 1.9, bilirubin 0.2, AST 77, ALT 81, alkaline phosphatase 107, albumin 3.8, lipase 50, UDS consistent with home prescription for opioids and benzodiazepines, urine ethanol level 0. Given IV hydromorphone and admitted for further care 10/22: Left upper extremity PICC placed without event. K3 and mag 1.7 replacing. She has home TPN already set up and will arrange for home health and after electrolyte replacement can discharge home with home health today. She does note on further review that she had 6 watery bowel movements overnight and felt like the more yellowish. We will send stool for enteric bacterial pathogens and C. difficile. This would not hold up discharge with follow-up and call in antibiotics as appropriate. She notes allergy to vancomycin so she would need Dificid if she is C. difficile positive. Adeline with gastroenterology with whom she has outpatient follow-up as well as general surgery with whom she has outpatient follow-up to discuss options up to but not limited to colectomy and possible percutaneous feeding tube again. Consults: General surgery, gastroenterology Problem list: Hypokalemia - replaced GERD - s/p Fallon funcoplication in 2017 with revision w/ vagal nerve injury in 2019 Gastroparesis -multifactorial with historic vagus nerve injury and chronic opioids both contribute. With connective tissue disease disorder in the family further work-up indicated outpatient by GI Transaminitis -likely malnutrition related. Will monitor outpatient. Severe protein calorie malnutrition -plans for outpatient TPN. Will place PICC H/o [facility]'s - likely original indication for Fallon in 2016 Chronic constipation - partially opioid induced and neurologic H/o bowel perforation - complicated partial colon resection, pyloroplasty, GJ tube placement which was subsequently removed. Discussed with patient she does not wish for repeat from time. Advised this may eventually be necessary Pancreatic insufficiency - she tells me she was placed on creon for this Chronic pain/opioid dependence -counseled on alternative medications and referr al to pain management outpatient. Part of her gastroparesis can be opioid induced as well Abdominal distention -partially due to chronic constipation. Could try Relistor given chronic opioid therapy. Movantik or other oral naltrexone agent may be appropriate Abnormal weight loss - uterine ca in remission. Seems to be malabsorption due to severe protein calorie malnutrition. She has lost 250 pounds over the past 5 years of 100 which she lost intentionally but after 2019 she lost an additional 150 pounds. No history of eating disorders. Anxiety - on xanax outpatient Hypothyroidism - levothyroxine Pelvic floor dysfunction and Lichen planus Vit D deficiency - on weekly [id number] Pernicious anemia - takes weekly B12 shots ADHD H/o uterine cancer - in remission Greater than 30 minutes spent on d/c home with home health and TPN Discharge Information Condition at Discharge: Stable Follow Up: Weeks (1) Disposition/Orders: D/C to Home w/ HH Scheduled Fentanyl (FENTANYL 25mcg/hr) 1 Each Patch.td72, 1 PATCH TD Q3DAYS for Chronic abdominal pain for 30 Days, #10 Prescribed by: MAXIMILIANO GOLDSMITH MD on 10/21/21 1559 Levothyroxine Sodium (Levothyroxine Sodium) 88 Mcg Tablet, 88 MCG PO DAILY06 for Hypothyroidism for 30 Days, #30 Prescribed by: MAXIMILIANO GOLDSMITH MD on 10/21/21 1559 Sodium/K+/Mag/Ca/Chlor/Acetate (Tpn Electrolytes Ii Iv Soln) 20 Ml Vial, 20 ML IV DAILY for Malnutrition for 30 Days, #30 Ref 11 Prescribed by: MAXIMILIANO GOLDSMITH MD on 10/22/21 1155 Scheduled PRN Bisacodyl (Bisacodyl) 5 Mg Tablet.dr, 10 MG PO PRN DAILY PRN for CONSTIPATION for 30 Days, #30 Prescribed by: MAXIMILIANO GOLDSMITH MD on 10/21/21 1559 Oxycodone Hcl (Oxycodone Hcl Immed.release ) 5 Mg Tablet, 5 MG PO PRN Q6HRS PRN for PAIN for 30 Days, #120 Prescribed by: MAXIMILIANO GOLDSMITH MD on 10/21/21 1026 Justicifation of Admission Dx: Justifications for Admission: Justification of Admission Dx: Yes MAXIMILIANO GOLDSMITH MD Oct 22, 2021 13:00
--- NOTE | 2021-10-22 13:03 | NUR ---
SS following up with discharge planning. SS reviewed pt chart and discussed with pt RN. Pt is currently on room air. PICC line in place. Pt has infusion services with [facility], ; fax [phone], for home TPN. Discharge orders received for home with home healthcare. TPN orders and clinical phoned and faxed to [facility]. Pt had A Home Healthcare with [facility], ; fax [phone], prior to admission. Discharge orders and referral sent to [facility]. Pt's RN notified. Addendum: 10/22/21 at 1456 by WILLA BUI [facility] unable to accept due to staffing. Referral and discharge orders for home healthcare sent to [facility], ; fax [phone]. Script received for DME. Script and clinical phoned and faxed to [facility], ; fax [phone].
[2021-10-23] MEDS ORDERED: FIDA200T PO (12:30)
[2021-10-25 15:18] LABS: MITOCHONDRIAL ABDY <20.0 Units (0.0-20.0); SMOOTH MUSCLE AB 4 Units (0-19)
== END 2021-10-22 15:00 | disposition home health service (06) | DRG 391 ==
LOC: ER 16:32 → 6 SOUTH 20:14
PROVIDERS: ADMIT Family Medicine; ATTEND Family Medicine
DX: K31.84 Gastroparesis (principal); E43 Unspecified severe protein-calorie malnutrition; F11.20 Opioid dependence, uncomplicated; Z68.1 Body mass index [BMI] 19.9 or less, adult; A04.72 Enterocolitis due to Clostridium difficile, not specified as recurrent; C55 Malignant neoplasm of uterus, part unspecified; D51.0 Vitamin B12 deficiency anemia due to intrinsic factor deficiency; E03.9 Hypothyroidism, unspecified; E55.9 Vitamin D deficiency, unspecified; E87.6 Hypokalemia; F41.9 Anxiety disorder, unspecified; F90.9 Attention-deficit hyperactivity disorder, unspecified type; G89.29 Other chronic pain; K21.9 Gastro-esophageal reflux disease without esophagitis; K74.60 Unspecified cirrhosis of liver; L43.9 Lichen planus, unspecified; M19.90 Unspecified osteoarthritis, unspecified site; T40.2X5A Adverse effect of other opioids, initial encounter; Z80.3 Family history of malignant neoplasm of breast; Z85.42 Personal history of malignant neoplasm of other parts of uterus; Z87.19 Personal history of other diseases of the digestive system; Z87.891 Personal history of nicotine dependence; Z88.1 Allergy status to other antibiotic agents; Z90.49 Acquired absence of other specified parts of digestive tract; Z90.710 Acquired absence of both cervix and uterus; Z88.8 Allergy status to other drugs, medicaments and biological substances; S04.899 Injury of other cranial nerves, unspecified side
CPT/HCPCS: 36415; 36569; 80048; 80053; 80307; 81001; 82607; 82962; 83516; 83690; 83735; 84100; 85025; 86705; 86709; 86803; 87340; 87493; 87505; 96361; 96365; 96375; G0480; J1170; J1644; J2212; J2405; J3010; J3475; J3480; J7030; J7042; 99285-25; G0378